=== PATIENT | male | born 1985 | race Caucasian/White ===

== ENCOUNTER 2017-09-18 15:56 | Emergency (ER) | payer BC, SELFPAY | END 2017-09-18 16:45 | disposition home or self-care (01) | PROVIDERS: Emergency Provider Nurse Practitioner Family; Family Provider Emergency Medicine; Visit Provider Nurse Practitioner Family | DX: J06.9 Acute upper respiratory infection, unspecified (principal) | CPT/HCPCS: 87804; 87880; 99201 ==

== ENCOUNTER 2017-10-10 18:06 | Emergency (ER) | payer BC, SELFPAY ==
[2017-10-10 18:39] VITALS: BP 132/83; PULSE 89; RESP 20; TEMP 37.9; O2SAT 98; BMI 39.8
[2017-10-10 18:46] LABS: UTC Influenza A Antigen Positive (Negative); UTC Influenza B Antigen Negative (Negative)
--- NOTE | 2017-10-10 19:52 | HMH.EDUTC ---
[facility] [place] Disposition Clinical Impression: Influenza A Disposition: Home, Self-Care Condition on Discharge: Good Instructions: DI for Influenza -- Adult Additional Instructions: * Start Tamiflu maame if you are going to take it. Discussed risks and possible benefits. * Lots of rest * Increase fluids, water, gatorade, powerade, pedialyte if /toddler/child * Monitor Temp. Tylenol every 4 hours as needed no more then 5 times a day or 4000mg in 24 hours and/or ibuprofen every 6 hours as needed no more then 3200mg in 24 hours (as long as your primary care doctor has told you that it is ok to take both) for fever/aches/pain. ER if fever no less than 101 despite tylenol and Ibuprofen * You (or your child) are contagious until no fever, aches, chills x 24 hours without medication for symptoms. Prescriptions: Oseltamivir Phosphate [Tamiflu 75mg Capsule] 75 mg PO BID #10 capsule Referrals: Erick Jimenez MD [Primary Care Provider] - (IMMEDIATELY for new or worsening symptoms, improvement followed by suddenly feeling worse OR no noticeable improvement over the next 48-72 hours. 911 for difficulty breathing ) Forms: Work/School Release Time of Disposition: 20:02 Medical Decision Making Vital Signs: 10/10/17 18:39 Temperature 100.2 F H Temperature Source Oral Pulse Rate [Left Brachial] 89 Respiratory Rate 20 Blood Pressure [Left Arm] 132/83 Blood Pressure Mean [Left Arm] 99 Blood Pressure Source [Left Arm] Automatic Cuff Blood Pressure Position [Left Arm] Sitting 02 Sat by Pulse Oximetry 98 Oxygen Delivery Method Room Air - Lab Data Lab results reviewed: Yes: I reviewed the patient's lab results. Lab Results 10/10/17 18:19: Influenza Type A Ag Positive A, Influenza Type B Ag Negative - Tra Inquiry Pt receiving controlled substance: No [facility] [place] HPI - General Stated complaint: fever,pain,chest congestion,cough Time Seen by Provider: 10/10/17 19:52 Mode of Arrival: Ambulatory Source of Information: Patient Limitations: No Limitations Description of Symptoms (Recalled from Triage Doc. by RN): c/o flu-like symptoms HEENT Symptoms (Recalled from RN notes): Yes (runny nose) Resp Symptoms (Recalled from RN notes): Yes (cough, congestion) Skin Symptoms (Recalled from RN notes): No MS Symptoms (Recalled from RN notes): Yes (bodyaches) Functional Status (Recalled from RN notes): n/a - History of Present Illness Provider Complaint: c/o fever, aches, chills, cough. Started last night w/ just not feeling well but then other symptoms started throughout today. Daughter had the flu less then 2 weeks ago. No treatment prior to arrival. - Related Data Previous Rx's Medication Instructions Recorded Oseltamivir Phosphate [Tamiflu 75 mg PO BID #10 cap 10/10/17 75mg Capsule] Allergies Allergy/AdvReac Type Severity Reaction Status Date / Time No Known Allergies Allergy Verified 10/10/17 18:44 NKDA Allergy Unknown Uncoded 09/15/17 14:43 - Worker's Comp Is this a Worker's Comp case?: No [facility] History I have reviewed the patient's past medical history: Yes (denies PMHx) Medical History: Denies:: Cancer, Diabetes Mellitus Type 1, Diabetes Mellitus Type 2, Hypertension, MRSA Other Surgeries: Yes: No Previous Surgery Amputation: No Fractures: No - *Social History Smoking Status: Never smoker Alcohol Intake: never - Psychiatric History Expresses thoughts of harming self/others: None Suicide Plan Description: No Plan ROS Obtained: Yes Systems reviewed as appropriate & no additional complaints - Constitutional Constitutional: Reports body ache, Reports chills, Reports fatigue, Reports poor appetite - Eyes Eyes: Denies eye discharge, Denies eye pain - ENT Ears, Nose, Mouth, and Throat: Denies difficulty swallowing, Denies ear discharge, Denies otalgia, Reports nasal congestion, Reports nasal discharge, Denies sinus pain, Reports sinus pressure, Reports sore throat, Denies throat swelling
--- NOTE | 2017-10-10 19:57 | ED_ITS ---
[place] Disposition Clinical Impression: Influenza A Disposition: Home, Self-Care Condition on Discharge: Good Instructions: DI for Influenza -- Adult Additional Instructions: * Start Tamiflu maame if you are going to take it. Discussed risks and possible benefits. * Lots of rest * Increase fluids, water, gatorade, powerade, pedialyte if infant/toddler/child * Monitor Temp. Tylenol every 4 hours as needed no more then 5 times a day or 4000mg in 24 hours and/or ibuprofen every 6 hours as needed no more then 3200mg in 24 hours (as long as your primary care doctor has told you that it is ok to take both) for fever/aches/pain. ER if fever no less than 101 despite tylenol and Ibuprofen * You (or your child) are contagious until no fever, aches, chills x 24 hours without medication for symptoms. Prescriptions: Oseltamivir Phosphate [Tamiflu 75mg Capsule] 75 mg PO BID #10 capsule Referrals: Erick Jimenez MD [Primary Care Provider] - (IMMEDIATELY for new or worsening symptoms, improvement followed by suddenly feeling worse OR no noticeable improvement over the next 48-72 hours. 911 for difficulty breathing * ) Forms: Work/School Release Time of Disposition: 20:02 Medical Decision Making Vital Signs: 10/10/17 18:39 Temperature 100.2 F H Temperature Source Oral Pulse Rate [Left Brachial] 89 Respiratory Rate 20 Blood Pressure [Left Arm] 132/83 Blood Pressure Mean [Left Arm] 99 Blood Pressure Source [Left Arm] Automatic Cuff Blood Pressure Position [Left Arm] Sitting 02 Sat by Pulse Oximetry 98 Oxygen Delivery Method Room Air - Lab Data Lab results reviewed: Yes: I reviewed the patient's lab results. Lab Results 10/10/17 18:19: Influenza Type A Ag Positive A, Influenza Type B Ag Negative - Tra Inquiry Pt receiving controlled substance: No [place] HPI - General Stated complaint: fever,pain,chest congestion,cough Time Seen by Provider: 10/10/17 19:52 Mode of Arrival: Ambulatory Source of Information: Patient Limitations: No Limitations Description of Symptoms (Recalled from Triage Doc. by RN): c/o flu-like symptoms HEENT Symptoms (Recalled from RN notes): Yes (runny nose) Resp Symptoms (Recalled from RN notes): Yes (cough, congestion) Skin Symptoms (Recalled from RN notes): No MS Symptoms (Recalled from RN notes): Yes (bodyaches) Functional Status (Recalled from RN notes): n/a - History of Present Illness Provider Complaint: c/o fever, aches, chills, cough. Started last night w/ just not feeling well but then other symptoms started throughout today. Daughter had the flu less then 2 weeks ago. No treatment prior to arrival. - Related Data Previous Rx's Medication Instructions Recorded Oseltamivir Phosphate [Tamiflu 75 mg PO BID #10 cap 10/10/17 75mg Capsule] Allergies Allergy/AdvReac Type Severity Reaction Status Date / Time No Known Allergies Allergy Verified 10/10/17 18:44 NKDA Allergy Unknown Uncoded 09/15/17 14:43 - Worker's Comp Is this a Worker's Comp case?: No [facility] History I have reviewed the patient's past medical history: Yes (denies PMHx) Medical History: Denies:: Cancer, Diabetes Mellitus Type 1, Diabetes Mellitus Type 2, Hypertension, MRSA Other Surgeries: Yes: No Previous Surgery Amputation: No Fractures: No - *Social History Smoking Status: Never smoker Alcohol Intake: never
[2017-10-10 20:08] VITALS: BP 132/83; PULSE 89; RESP 20; TEMP 37.7; O2SAT 98
== END 2017-10-10 20:10 | disposition home or self-care (01) ==
PROVIDERS: Emergency Provider Nurse Practitioner Family; Family Provider Emergency Medicine; PCP Emergency Medicine
DX: J10.1 Influenza due to other identified influenza virus with other respiratory manifestations (principal)
CPT/HCPCS: 87804; 99202

== ENCOUNTER → 2018-05-06 10:03 | Outpatient (REF) | payer BC, SELFPAY ==
[2018-05-06 14:03] LABS: Basophils # 0.1 K/mm3 (0-0.2); Eosinophils # 0.8 K/mm3 (0.0-0.4); Eosinophils % 11.2 % (0.1-12.0); Hematocrit 49.4 % (42.0-52.0); Hemoglobin 16.4 g/dL (14.1-18.0); Lymphocytes # 1.8 K/mm3 (0.7-4.5); Lymphocytes % 26.1 K/mm3 (10-50); Mean Corpuscular HGB Conc 33.2 g/dL (31.8-35.4); Mean Corpuscular Hemoglobin 30.5 pg (27.0-31.2); Mean Corpuscular Volume 91.8 fl (80-94); Mean Platelet Volume 9.3 fl (7.4-10.4); Monocytes # 0.3 K/mm3 (0.1-1.0); Monocytes % 4.7 % (1.7-9.3); Neutrophils # 3.8 K/mm3 (1.8-7.8); Neutrophils % 56.9 % (37.0-80.0); Platelet Count 163 K/mm3 (142-424); Red Blood Count 5.38 M/mm3 (4.60-6.20); White Blood Count 6.7 K/mm3 (4.8-10.8)
[2018-05-06 14:35] LABS: Alanine Aminotransferase 82 U/L (12-78); Albumin Level 4.1 gm/dL (3.4-5.0); Albumin/Globulin Ratio 1.5 (1.1-1.8); Alkaline Phosphatase 62 U/L (46-116); Anion Gap 11.7 mEq/L (5-15); Aspartate Amino Transferase 54 U/L (15-37); Bilirubin,Total 0.6 mg/dL (0.2-1.0); Blood Urea Nitrogen 13 mg/dL (7-18); Carbon Dioxide 28 mmol/L (21.0-32.0); Chloride 103 mmol/L (98-107); Chol/HDL Ratio 3.7 (1-3.5); Cholesterol 165 mg/dL (140-200); Creatinine,Serum 0.93 mg/dL (0.70-1.30); Estimated Glomerular Filt Rate 94 ml/min (>60); GFR (African American) 113 ML/MIN (>60); Globulin 2.8 gm/dl (1.3-3.2); Glucose 80 mg/dL (74-106); HDL Cholesterol 45 mg/dL (27-67); LDL Cholesterol 106 mg/dL (0-130); Potassium 3.7 mmoL/L (3.5-5.1); Sodium 139 mmol/L (136-145); Thyroid Stimulating Hormone 1.11 uIU/ml (0.358-3.740); Total Protein,Serum 6.9 gm/dL (6.4-8.2); Triglycerides 70 mg/dL (30-200); VLDL Cholesterol 14 mg/dL (0-40)
[2018-05-06 14:47] LABS: Hemoglobin A1C 5.4 % (0.0-7.0)
[2018-05-07 15:23] LABS: PSA, Free 0.13 ng/mL; Prostate Specific Ag 0.5 ng/mL (0.0-4.0); Vitamin D 25 Hydroxy 42.1 ng/mL (30.0-100.0)
== END ==
LOC: LAB 10:03
PROVIDERS: Visit Provider Nurse Practitioner Family
DX: T78.40XA Allergy, unspecified, initial encounter (principal); R53.83 Other fatigue; R11.2 Nausea with vomiting, unspecified
CPT/HCPCS: 80053; 80061; 82652; 83036; 84153; 84154; 84436; 84443; 85025

== ENCOUNTER → 2018-05-24 07:44 | Outpatient (CLI) | payer BC, SELFPAY ==
[2018-05-25 09:19] LABS: Hep A Ab, IgM Negative (Negative); Hepatitis B Core Antibody IgM Negative (Negative); Hepatitis B Surface Antigen Negative (Negative)
[2018-05-26 14:49] LABS: Hepatitis C Antibody 0.1 s/co ratio (0.0-0.9)
== END ==
PROVIDERS: PCP Emergency Medicine; Visit Provider Nurse Practitioner Family
DX: R74.8 Abnormal levels of other serum enzymes (principal)
CPT/HCPCS: 36415; 80074

== ENCOUNTER → 2019-05-19 12:46 | Outpatient (CLI) | payer BC, SELFPAY ==
[2019-05-19 13:11] LABS: Basophils # 0.1 K/mm3 (0-0.2); Eosinophils # 0.2 K/mm3 (0.0-0.4); Eosinophils % 3.6 % (0.1-12.0); Hematocrit 49.3 % (42.0-52.0); Hemoglobin 16.3 g/dL (14.1-18.0); Lymphocytes # 1.9 K/mm3 (0.7-4.5); Lymphocytes % 31.1 % (10-50); Mean Corpuscular HGB Conc 33.1 g/dL (31.8-35.4); Mean Corpuscular Hemoglobin 30.8 pg (27.0-31.2); Mean Corpuscular Volume 92.9 fl (80-94); Mean Platelet Volume 8.3 fl (7.4-10.4); Monocytes # 0.4 K/mm3 (0.1-1.0); Monocytes % 6.7 % (1.7-9.3); Neutrophils # 3.6 K/mm3 (1.8-7.8); Neutrophils % 57.6 % (37.0-80.0); Platelet Count 183 K/mm3 (142-424); Red Blood Count 5.31 M/mm3 (4.60-6.20); White Blood Count 6.2 K/mm3 (4.8-10.8)
[2019-05-19 15:03] LABS: Alanine Aminotransferase 67 U/L (12-78); Albumin/Globulin Ratio 1.4 (1.1-1.8); Alkaline Phosphatase 43 U/L (46-116); Anion Gap 9.9 mEq/L (5-15); Aspartate Amino Transferase 34 U/L (15-37); Bilirubin,Total 0.6 mg/dL (0.2-1.0); Blood Urea Nitrogen 16 mg/dL (7-18); Calcium 9.1 mg/dL (8.5-10.1); Carbon Dioxide 31 mmol/L (21.0-32.0); Chloride 104 mmol/L (98-107); Chol/HDL Ratio 4.3 (1-3.5); Cholesterol 187 mg/dL (140-200); Estimated Glomerular Filt Rate 86 ml/min (>60); GFR (African American) 103 ML/MIN (>60); Globulin 2.8 gm/dl (1.3-3.2); Glucose 93 mg/dL (74-106); HDL Cholesterol 44 mg/dL (27-67); LDL Cholesterol 120 mg/dL (0-130); Potassium 3.9 mmoL/L (3.5-5.1); Sodium 141 mmol/L (136-145); T4 (Thyroxine) 5.7 ug/dl (4.7-13.3); Thyroid Stimulating Hormone 2.26 uIU/ml (0.358-3.740); Total Protein,Serum 6.8 gm/dL (6.4-8.2); Triglycerides 117 mg/dL (30-200); VLDL Cholesterol 23 mg/dL (0-40)
[2019-05-20 09:51] LABS: Vitamin D 25 Hydroxy 24.9 ng/mL (30.0-100.0)
== END ==
PROVIDERS: Visit Provider Nurse Practitioner Family
DX: Z00.00 Encounter for general adult medical examination without abnormal findings (principal)
CPT/HCPCS: 36415; 80053; 80061; 82652; 84436; 84443; 85025

== ENCOUNTER 2021-05-07 12:34 | Emergency (ER) | payer BC, SELFPAY ==
[2021-05-07 13:10] VITALS: BP 149/81; PULSE 78; RESP 20; TEMP 36.8; O2SAT 97; BMI 41.7
[2021-05-07 13:33] LABS: UTC Strep Screen (Rapid) Positive (Negative)
[2021-05-07 13:34] VITALS: BP 149/81; PULSE 78; RESP 20; TEMP 36.8; O2SAT 97
[2021-05-07 13:38] LABS: Adenovirus,PCR Not Detected (NotDetected); Bordetella Pertussis Not Detected (NotDetected); Chlamydophila Pneumoniae, PCR Not Detected (NotDetected); Coronavirus 19, PCR Not Detected (NotDetected); Coronavirus 229E Not Detected (NotDetected); Coronavirus NL63 Not Detected (NotDetected); Coronavirus OC43 Not Detected (NotDetected); Coronovirus HKU1,PCR Not Detected (NotDetected); Human Metapneumovirus Not Detected (NotDetected); Influenza A, PCR Not Detected (NotDetected); Influenza AH1, 2009 Not Detected (NotDetected); Influenza AH1, PCR Not Detected (NotDetected); Influenza AH3,PCR Not Detected (NotDetected); Influenza B, PCR Not Detected (NotDetected); Mycoplasma Pneumoniae, PCR Not Detected (NotDetected); Parainfluenza 1, PCR Not Detected (NotDetected); Parainfluenza 2, PCR Not Detected (NotDetected); Parainfluenza 4, PCR Not Detected (NotDetected); Respiratory Syncytial Virus Not Detected (NotDetected); Rhinovirus/Enterovirus Not Detected (NotDetected)
--- NOTE | 2021-05-07 13:44 | HMH.EDUTC ---
[facility] [place] Clinical Impression: Strep throat Disposition: Home, Self-Care Condition on Discharge: Good Instructions: Strep Throat, DI for Strep Throat Additional Instructions: Drink plenty of fluids. Take tylenol or ibuprofen for pain or fever. Take the medications as directed. Follow up with your regular doctor. GO TO THE ER FOR ANY WORSENING SYMPTOMS Throw your tooth brush away and get a new one. Prescriptions: Brompheniramine/Pseudoephed/Dm [Bromfed Dm Cough Syrup] 5 ml PO Q6HP PRN #240 syrup PRN Reason: Cough [facility]: [facility] Ondansetron [Zofran 4mg ODT] 4 mg PO Q8HP PRN #12 tab.rapdis PRN Reason: Nausea Transmission Status: [facility] Amoxicillin [Amoxicillin 500mg Tab] 500 mg PO TID 10 Days #30 tab Transmission Status: [facility] Referrals: Erick Jimenez MD [Primary Care Provider] - Forms: Work/School Release Time of Disposition: 13:50 Medical Decision Making - Medical Records Medical records reviewed: No: I reviewed the patient's medical records. - Tra Inquiry Pt receiving controlled substance: No Vital Signs: 05/07/21 13:10 05/07/21 13:34 Temperature 98.3 F 98.3 F Temperature Source Oral Pulse Rate 78 Pulse Rate [Right Brachial] 78 Respiratory Rate 20 20 Blood Pressure 149/81 H Blood Pressure [Right Arm] 149/81 H Blood Pressure Mean [Right Arm] 103 Blood Pressure Source [Right Arm] Automatic Cuff Blood Pressure Position [Right Arm] Sitting 02 Sat by Pulse Oximetry 97 Oxygen Delivery Method Room Air - Lab Data Lab results reviewed: Yes: I reviewed the patient's lab results. Lab Results 05/07/21 13:15: Chlamy pneumoniae PCR Not detected, Adenovirus (PCR) Not detected, B. pertussis DNA (PCR) Not detected, Coronavirus OC43 (PCR) Not detected, Coronavirus HKU1 (PCR) Not detected, Coronavirus 229E (PCR) Not detected, SARS-CoV-2 (PCR) Not detected, Coronavirus NL63 (PCR) Not detected, Human Metapneumovir PCR Not detected, Influenza A (H1) PCR Not detected, Influ A (H1N1/09) PCR Not detected, Influenza A (H3) PCR Not detected, Influenza Type A (PCR) Not detected, Influenza Type B (PCR) Not detected, M. pneumoniae (PCR) Not detected, Parainfluenza 1 (PCR) Not detected, Parainfluenza 2 (PCR) Not detected, Parainfluenza 3 (PCR) Detected A, Parainfluenza 4 (PCR) Not detected, RSV (PCR) Not detected, Entero/Rhino (PCR) Not detected 05/07/21 13:30: Strep Scn Rapid Clinic Positive A [facility] [place]PI - General Stated complaint: covid Time Seen by Provider: 05/07/21 13:44 Mode of Arrival: Ambulatory Source of Information: Patient Limitations: No Limitations Description of Symptoms (Recalled from Triage Doc. by RN): PATIENT C/O FEVER, HEADACHE, STOMACH ACHE, NAUSEA, SORE THROAT, AND RUNNY NOSE SINCE YESTERDAY HEENT Symptoms (Recalled from RN notes): Yes Resp Symptoms (Recalled from RN notes): No Skin Symptoms (Recalled from RN notes): No MS Symptoms (Recalled from RN notes): No Functional Status (Recalled from RN notes): WNL - History of Present Illness Provider Complaint: He reports that he has had sore throat and feeling bad since yesterday. He states that his symptoms began like a ton of bricks landing on him. He denies any chest pain, but he has had a dry cough. He has had nausea, but no vomiting or diarrhea. - Related Data Previous Rx's Medication Instructions Recorded cholecalciferol (vitamin D3) 25 1,000 unit PO DAILY #90 cap 05/23/19 mcg (1,000 unit) capsule Amoxicillin [Amoxicillin 500mg Tab] 500 mg PO TID 10 Days #30 tab 05/07/21 Brompheniramine/Pseudoephed/Dm 5 ml PO Q6HP PRN #240 syrup 05/07/21 [Bromfed Dm Cough Syrup] Ondansetron [Zofran 4mg ODT] 4 mg PO Q8HP PRN #12 tab.rapdis 05/07/21 Allergies Allergy/AdvReac Type Severity Reaction Status Date / Time Egg Derived Allergy Unknown Verified 05/13/19 14:01 - Worker's Comp Is this a W
[2021-05-07 15:49] LABS: Parainfluenza 3, PCR Detected (NotDetected)
== END 2021-05-07 14:04 | disposition home or self-care (01) ==
PROVIDERS: Emergency Provider Nurse Practitioner Family; PCP Emergency Medicine
DX: J02.0 Streptococcal pharyngitis (principal)
CPT/HCPCS: 87581; 87633; 87798; 87880; 99203; G0463

== ENCOUNTER 2021-05-09 15:07 | Emergency (ER) | payer BC, SELFPAY ==
[2021-05-09 15:07] VITALS: BP 141/96; PULSE 84; RESP 17; TEMP 37; O2SAT 96; BMI 41.7
--- NOTE | 2021-05-09 15:41 | HMH.EDUTC ---
[facility] [place] Clinical Impression: Parainfluenza Disposition: Home, Self-Care Condition on Discharge: Good Instructions: DI for Viral Upper Respiratory Infection -- Adult Additional Instructions: Continue taking antibiotics for strep throat infection Continue taking Bromfed for cough *Monitor Temp, Over the counter Motrin or Tylenol as directed/as needed Tylenol every 4 hours and Motrin every 6 hours (as long as your family doctor has told you that you can take it) for fever or pain. and straight to ER if unable to lower temp less than 101.0 after medication given *Warm salt water gargles may help to soothe the throat *Throat Lozenges *Warm fluids like tea with honey may help to soothe the throat *Sleep elevated *Humidifier/Vaporizer *Bromfed may cause drowsiness. Know how it effects you (your child) before driving, caring for small child, or sending your child to school. Not other antihistamines/allergy medications while taking bromfed You tested positive for Parainfluenza and this is a virus and may last for a little while and cause symptoms like you are having, there is no treatment for viruses Follow up IMMEDIATELY for new or worsening symptoms or no Noticeable improvement over the next 48-72 hours. 911 for difficulty breathing or swallowing Referrals: Erick Jimenez MD [Primary Care Provider] - As needed Forms: Work/School Release Time of Disposition: 15:51 Medical Decision Making - Tra Inquiry Pt receiving controlled substance: No Tra was queried for this patient: No Vital Signs: 05/09/21 15:07 Temperature 98.6 F Temperature Source Oral Pulse Rate [Left Radial] 84 Respiratory Rate 17 Blood Pressure [Right Arm] 141/96 H Blood Pressure Mean [Right Arm] 111 Blood Pressure Source [Right Arm] Automatic Cuff Blood Pressure Position [Right Arm] Sitting 02 Sat by Pulse Oximetry 96 Oxygen Delivery Method Room Air - Lab Data Lab results reviewed: Yes: I reviewed the patient's lab results. Lab Results 05/09/21 15:36: Strep Scn Rapid Clinic Negative Orders (Tests/Meds): ORDERS Category Date Time Status Strep Screen Confirmation Stat Micro 05/09/21 15:36 Received [facility] [place] - General Stated complaint: possible strep Time Seen by Provider: 05/09/21 15:41 Mode of Arrival: Ambulatory Source of Information: Patient Limitations: No Limitations Description of Symptoms (Recalled from Triage Doc. by RN): sore throat since Thursday HEENT Symptoms (Recalled from RN notes): Yes Resp Symptoms (Recalled from RN notes): No Skin Symptoms (Recalled from RN notes): No MS Symptoms (Recalled from RN notes): No Functional Status (Recalled from RN notes): na - History of Present Illness Provider Complaint: Patient state that he was seen on Thursday and dx with strep throat and had URP States that he has been taking antibiotics and still feeling bad States that he wasnt sure if his strep was getting worse or not and has not got the results from his URP and wanted to see if they was back - Related Data Previous Rx's Medication Instructions Recorded cholecalciferol (vitamin D3) 25 1,000 unit PO DAILY #90 cap 05/23/19 mcg (1,000 unit) capsule Amoxicillin [Amoxicillin 500mg Tab] 500 mg PO TID 10 Days #30 tab 05/07/21 Brompheniramine/Pseudoephed/Dm 5 ml PO Q6HP PRN #240 syrup 05/07/21 [Bromfed Dm Cough Syrup] Ondansetron [Zofran 4mg ODT] 4 mg PO Q8HP PRN #12 tab.rapdis 05/07/21 Allergies Allergy/AdvReac Type Severity Reaction Status Date / Time Egg Derived Allergy Unknown Verified 05/13/19 14:01 - Worker's Comp Is this a Worker's Comp case?: No [facility] History - Hepatitis A Screen Drug use history?: No High risk sexual behaviors?: No History of sexually transmitted infection?: No Currently employed?: No Childcare worker?: No Do you have indoor plumbing?: Yes Do you have electricity?: Yes Attestation statement:: This patient has been screened for Hepatitis A risk factors.
[2021-05-09 15:45] LABS: UTC Strep Screen (Rapid) Negative (Negative)
[2021-05-09 15:59] VITALS: BP 141/96; PULSE 84; RESP 17; TEMP 37; O2SAT 96
== END 2021-05-09 16:00 | disposition home or self-care (01) ==
PROVIDERS: Emergency Provider Nurse Practitioner; PCP Emergency Medicine
DX: B34.8 Other viral infections of unspecified site (principal); J02.0 Streptococcal pharyngitis
CPT/HCPCS: 87880; 99202; G0463

== ENCOUNTER → 2021-08-26 20:00 | Outpatient (CLI) | payer BC, SELFPAY ==
--- NOTE | 2021-08-28 11:46 | PC.NURSE ---
notified pt of positive COVID results at this time
== END ==
PROVIDERS: Visit Provider Nurse Practitioner Family
DX: U07.1 COVID-19 (principal); J02.9 Acute pharyngitis, unspecified
CPT/HCPCS: C9803; U0003; U0005

== ENCOUNTER 2021-12-26 14:01 | Emergency (ER) | payer BC, SELFPAY ==
[2021-12-26 14:01] VITALS: BP 150/92; PULSE 89; RESP 18; TEMP 37; O2SAT 96; BMI 42.3
[2021-12-26 16:41] LABS: UTC Influenza A Antigen Negative (Negative)
[2021-12-26 16:42] LABS: UTC Influenza B Antigen Negative (Negative)
[2021-12-26 16:51] LABS: Strep Scrn Group A (Rapid) Negative (Negative)
--- NOTE | 2021-12-26 16:54 | HMH.EDUTC ---
[facility] [place] Clinical Impression: Bronchitis, Viral syndrome Sinusitis Qualifiers: Sinusitis location: unspecified location Chronicity: acute Recurrence: non-recurrent Qualified Code(s): J01.90 - Acute sinusitis, unspecified Disposition: Home, Self-Care Condition on Discharge: Good Instructions: DI for Sinusitis, DI for Acute Bronchitis Additional Instructions: Drink plenty of fluids. Take tylenol or ibuprofen for pain or fever. Take the medications as directed. Follow up with your regular doctor. GO TO THE ER FOR ANY WORSENING SYMPTOMS Prescriptions: Amoxicillin/Potassium Clav [Amox-Clav 875-125 mg Tablet] 1 tab PO BID #20 tab Transmission Status: Pending to [facility] Benzonatate [Benzonatate 100mg cap] 100 mg PO TIDP PRN #30 cap PRN Reason: Cough Transmission Status: Pending to [facility] methylPREDNISolone [Medrol] 4 mg PO DIRECTED 6 Days #21 packet Transmission Status: Pending to [facility] Referrals: Erick Jimenez MD [Primary Care Provider] - Time of Disposition: 17:22 Medical Decision Making - Medical Records Medical records reviewed: No: I reviewed the patient's medical records. - Tra Inquiry Pt receiving controlled substance: No Vital Signs: 12/26/21 14:01 Temperature 98.6 F Temperature Source Oral Pulse Rate [Right Radial] 89 Respiratory Rate 18 Blood Pressure [Right Arm] 150/92 H Blood Pressure Mean [Right Arm] 111 Blood Pressure Source [Right Arm] Automatic Cuff Blood Pressure Position [Right Arm] Sitting 02 Sat by Pulse Oximetry 96 Oxygen Delivery Method Room Air - Lab Data Lab results reviewed: Yes: I reviewed the patient's lab results. Lab Results 12/26/21 16:31: Influenza Type A Ag Negative, Influenza Type B Ag Negative 12/26/21 16:32: Group A Strep Rapid Negative Orders (Tests/Meds): ORDERS Category Date Time Status Strep Screen Confirmation Stat Micro 12/26/21 16:32 Received [facility] [place]PI - General Stated complaint: fever, sore throat, congestion, runny nose, aches Time Seen by Provider: 12/26/21 16:54 Mode of Arrival: Ambulatory Source of Information: Patient Limitations: No Limitations Description of Symptoms (Recalled from Triage Doc. by RN): Pt sore throat, fever, sinus congestion, and body aches. HEENT Symptoms (Recalled from RN notes): Yes Resp Symptoms (Recalled from RN notes): Yes Skin Symptoms (Recalled from RN notes): No MS Symptoms (Recalled from RN notes): No Functional Status (Recalled from RN notes): n/a - History of Present Illness Provider Complaint: He states that he has has been feeling bad for the past 2 days. He has sinus congestion, sore throat, bilateral ear pain, and a productive cough with yellowish sputum. He denies any fever but he has been chilling. - Related Data Previous Rx's Medication Instructions Recorded cholecalciferol (vitamin D3) 25 1,000 unit PO DAILY #90 cap 05/23/19 mcg (1,000 unit) capsule Amoxicillin/Potassium Clav 1 tab PO BID #20 tab 12/26/21 [Amox-Clav 875-125 mg Tablet] Benzonatate [Benzonatate 100mg 100 mg PO TIDP PRN #30 cap 12/26/21 cap] methylPREDNISolone [Medrol] 4 mg PO DIRECTED 6 Days #21 12/26/21 packet Allergies Allergy/AdvReac Type Severity Reaction Status Date / Time Egg Derived Allergy Unknown Verified 12/26/21 16:31 - Worker's Comp Is this a Worker's Comp case?: No [facility] History - Hepatitis A Screen Drug use history?: No High risk sexual behaviors?: No History of sexually transmitted infection?: No Currently employed?: No Childcare worker?: No Do you have indoor plumbing?: Yes Do you have electricity?: Yes Attestation statement:: This patient has been screened for Hepatitis A risk factors. I have reviewed the patient's past medical history: Yes Medical History: Denies:: Cancer, Diabetes Mellitus Type 1, Diabetes Mellitus Type 2, Hypertension, MRSA Other Surgeries: Yes: No Previou
[2021-12-26 17:26] VITALS: BP 150/92; PULSE 89; RESP 18; TEMP 37; O2SAT 96
== END 2021-12-26 17:26 | disposition home or self-care (01) ==
PROVIDERS: Emergency Provider Nurse Practitioner Family; PCP Emergency Medicine
DX: J20.9 Acute bronchitis, unspecified (principal); J01.90 Acute sinusitis, unspecified; B34.9 Viral infection, unspecified
CPT/HCPCS: 87430; 87804; 99212; G0463

== ENCOUNTER 2022-07-10 14:43 | Emergency (ER) | payer BC, SELFPAY ==
[2022-07-10 15:00] VITALS: BP 130/85; PULSE 71; RESP 20; TEMP 36.7; O2SAT 94; BMI 41.7
--- NOTE | 2022-07-10 15:25 | EXP.UTC ---
Discharge Plan Disposition Patient Disposition: Home, Self-Care Condition: Good Prescriptions Prescriptions: New azithromycin [Zithromax] 250 mg tablet 250 mg PO UD DOSE PK Qty: 6 0RF Rx Instructions: Take two (2) tablets today, then one (1) tablet days #2 thru #5 benzonatate [benzonatate] 100 mg capsule 100 mg PO TIDP PRN (Reason: Cough) Qty: 30 0RF methylprednisolone 4 mg Tablets,Dose Pack 4 mg PO DIRECTED Qty: 21 0RF Referrals Follow up/Referrals: Erick Jimenez MD [Primary Care Provider] - See instructions Activity Restrictions/Add. Instructions Additional Instructions/Restrictions: Drink plenty of fluids. Take tylenol or ibuprofen for pain or fever. Take the medications as directed. Follow up with your regular doctor. GO TO THE ER FOR ANY WORSENING SYMPTOMS Quarantine until you know the results of your covid-19 test. Notify your school or workplace of your results and follow their instructions regarding return to work/school. Clinical Impressions Clinical Impression: Sinusitis, Acute bronchitis Stand Alone Forms Stand Alone Forms: Work/School Release Instructions Patient Instructions: Sinusitis, DI for Sinusitis, DI for Acute Bronchitis Discharge ED Provider: Galileo Ortiz [facility] [place] HPI General Stated complaint: sore throat,cough,SOA Mode of Arrival: Ambulatory Source of Information: Patient Limitations: No Limitations Time Seen by Provider: 07/10/22 15:25 Description of Symptoms (Recalled from Triage Doc. by RN): PATIENT C/O HEADACHE, SORE THROAT, RUNNY NOSE, CHILLS, BODY ACHES, AND CHEST CONGESTION THAT STARTED THURSDAY HEENT Symptoms (Recalled from RN notes): Yes Resp Symptoms (Recalled from RN notes): Yes Skin Symptoms (Recalled from RN notes): No MS Symptoms (Recalled from RN notes): No Functional Status (Recalled from RN notes): WNL History of Present Illness Provider Complaint: He states that for the past 3 days he has had chest congestion and sinus congestion. Related Data Previous Rx's Medication Instructions Recorded azithromycin 250 mg tablet 250 mg PO UD DOSE PK #6 tabs 07/10/22 (Zithromax) benzonatate 100 mg capsule 100 mg PO TIDP PRN Cough #30 caps 07/10/22 methylprednisolone 4 mg tablets in 4 mg PO DIRECTED #21 tabs 07/10/22 a dose pack Allergies Allergy/AdvReac Type Severity Reaction Status Date / Time Egg Derived Allergy Unknown Verified 12/26/21 16:31 Worker's Comp Is this a Worker's Comp case?: No PFSH PFSH Medical History No significant past medical history Social History Smoking Status: Never smoker alcohol intake: never substance use type: denies use current occupational status: other Travel in the last 8 weeks: None household members: family housing: house ROS Obtained: Yes All systems reviewed & no additional complaints except as documented Constitutional Constitutional: Reports chills and Reports fever(s) Eyes Eyes: Denies eye discharge ENT Ears, Nose, Mouth, and Throat: Reports as per HPI Cardiovascular Cardiovascular: Denies chest pain Respiratory Respiratory: Denies chest congestion and Reports cough Gastrointestinal Gastrointestingal: Reports nausea; Denies abdominal pain, constipation, cramping, diarrhea or vomiting Musculoskeletal Musculoskeletal: Denies arthralgias Integumentary/Breasts Skin/Breast: Denies rash Neurologic Neurologic: Denies paresthesias Physical Exam General General appearance: alert and in no apparent distress Head Head exam: atraumatic, normocephalic and normal inspection Eye Eye exam: Present normal appearance, PERRL and EOMI ENT ENT exam: Present mucous membranes moist and normal external ear exam Expanded ENT Exam TM/Canal exam: Bilateral TM: erythema and bulging Nose exam: Absent sinus tenderness Mouth exam: Present normal external inspection; A
[2022-07-10 16:15] VITALS: BP 130/85; PULSE 71; RESP 20; TEMP 36.7; O2SAT 94
== END 2022-07-10 16:17 | disposition home or self-care (01) ==
PROVIDERS: Emergency Provider Nurse Practitioner Family; PCP Emergency Medicine
DX: J20.9 Acute bronchitis, unspecified (principal); J32.9 Chronic sinusitis, unspecified
CPT/HCPCS: 99212; C9803; G0463; U0003; U0005

== ENCOUNTER 2022-09-08 14:39 | Emergency (ER) | payer BC, SELFPAY ==
[2022-09-08 16:31] VITALS: BP 144/85; PULSE 89; RESP 17; TEMP 37.9; O2SAT 96; BMI 39.8
--- NOTE | 2022-09-08 16:36 | EXP.UTC ---
Discharge Plan Disposition Patient Disposition: Home, Self-Care Condition: Good Prescriptions Prescriptions: New azithromycin [Zithromax] 250 mg tablet 250 mg PO UD DOSE PK Qty: 6 0RF Rx Instructions: Take two (2) tablets today, then one (1) tablet days #2 thru #5 benzonatate [benzonatate] 100 mg capsule 100 mg PO TIDP PRN (Reason: Cough) Qty: 30 0RF oseltamivir [Tamiflu] 75 mg capsule 75 mg PO BID Qty: 10 0RF No Action azithromycin [Zithromax] 250 mg tablet 250 mg PO UD DOSE PK Qty: 6 0RF Rx Instructions: Take two (2) tablets today, then one (1) tablet days #2 thru #5 benzonatate [benzonatate] 100 mg capsule 100 mg PO TIDP PRN (Reason: Cough) Qty: 30 0RF methylprednisolone 4 mg Tablets,Dose Pack 4 mg PO DIRECTED Qty: 21 0RF Referrals Follow up/Referrals: Erick Jimenez MD [Primary Care Provider] - See instructions Activity Restrictions/Add. Instructions Additional Instructions/Restrictions: Drink plenty of fluids. Take tylenol or ibuprofen for pain or fever. Take the medications as directed. Follow up with your regular doctor. GO TO THE ER FOR ANY WORSENING SYMPTOMS Clinical Impressions Clinical Impression: Acute bronchitis, Viral syndrome Stand Alone Forms Stand Alone Forms: Work/School Release Instructions Patient Instructions: DI for Influenza -- Adult, DI for Viral Syndrome, DI for Acute Bronchitis Discharge ED Provider: Galileo Ortiz [facility] General Stated complaint: cough, body aches, chills Mode of Arrival: Ambulatory Source of Information: Patient Limitations: No Limitations Time Seen by Provider: 09/08/22 16:36 Description of Symptoms (Recalled from Triage Doc. by RN): pt comes in with c/o cough, chest congestion, body aches, fever, nausea. symptoms began thursday HEENT Symptoms (Recalled from RN notes): Yes Resp Symptoms (Recalled from RN notes): Yes Skin Symptoms (Recalled from RN notes): No MS Symptoms (Recalled from RN notes): No Functional Status (Recalled from RN notes): n/a History of Present Illness Provider Complaint: He states that he is here today with cough, chest congestion, body aches, fever, nausea. His symptoms began on Thursday Related Data Previous Rx's Medication Instructions Recorded azithromycin 250 mg tablet 250 mg PO UD DOSE PK #6 tabs 07/10/22 (Zithromax) benzonatate 100 mg capsule 100 mg PO TIDP PRN Cough #30 caps 07/10/22 methylprednisolone 4 mg tablets in 4 mg PO DIRECTED #21 tabs 07/10/22 a dose pack azithromycin 250 mg tablet 250 mg PO UD DOSE PK #6 tabs 09/08/22 (Zithromax) benzonatate 100 mg capsule 100 mg PO TIDP PRN Cough #30 caps 09/08/22 oseltamivir 75 mg capsule (Tamiflu) 75 mg PO BID #10 caps 09/08/22 Allergies Allergy/AdvReac Type Severity Reaction Status Date / Time Egg Derived Allergy Unknown Verified 09/08/22 16:34 Worker's Comp Is this a Worker's Comp case?: No [facility] Disclaimer: The information contained in this section may have been updated after the patient was seen, as this information can be updated by other users. Medical History No significant past medical history Social History Smoking Status: Never smoker alcohol intake: never substance use type: denies use current occupational status: other Travel in the last 8 weeks: None household members: family housing: house ROS Obtained: Yes All systems reviewed & no additional complaints except as documented Constitutional Constitutional: Reports chills and Reports fever(s) Eyes Eyes: Denies eye discharge ENT Ears, Nose, Mouth, and Throat: Reports as per HPI Cardiovascular Cardiovascular: Denies chest pain Respiratory Respiratory: Denies chest congestion and Reports cough Gastrointestinal Gastrointestingal: Reports nausea; Denies abdominal pain, constipation, cramping, diarrhea o
[2022-09-08 16:53] LABS: UTC Strep Screen (Rapid) Negative (Negative)
[2022-09-08 17:21] VITALS: BP 144/85; PULSE 89; RESP 17; TEMP 37.6
[2022-09-08 18:19] LABS: Coronavirus 19, PCR Not Detected (NotDetected); Influenza B, PCR Not Detected (NotDetected)
[2022-09-08 21:08] LABS: Influenza A, PCR Detected (NotDetected)
== END 2022-09-08 17:22 | disposition home or self-care (01) ==
PROVIDERS: Emergency Provider Nurse Practitioner Family; PCP Emergency Medicine
DX: J10.1 Influenza due to other identified influenza virus with other respiratory manifestations (principal); J40 Bronchitis, not specified as acute or chronic
CPT/HCPCS: 87880; 99212; C9803; G0463; U0003; U0005

== ENCOUNTER 2022-11-25 10:08 | Emergency (ER) | payer BC, SELFPAY ==
[2022-11-25 10:30] VITALS: BP 132/96; PULSE 88; RESP 20; TEMP 37.6; O2SAT 97; BMI 39.5
--- NOTE | 2022-11-25 10:34 | EXP.UTC ---
Discharge Plan Disposition Patient Disposition: Home, Self-Care Condition: Good Referrals Follow up/Referrals: Erick Jimenez MD [Primary Care Provider] - See instructions Activity Restrictions/Add. Instructions Additional Instructions/Restrictions: *Monitor Temp, Over the counter Motrin or Tylenol as directed/as needed Tylenol every 4 hours and Motrin every 6 hours (as long as your family doctor has told you that you can take it) for fever or pain. and straight to ER if unable to lower temp less than 101.0 after medication given *Warm salt water gargles may help to soothe the throat *Throat Lozenges? *Warm fluids like tea with honey may help to soothe the throat? *Sleep elevated *Humidifier/Vaporizer Your throat swab was sent for culture. Those results are typically sent to your primary care. Be sure to follow up in 2-3 days with your family doctor/primary care physician if no improvement so they can review those result and treat if necessary. If you don?t have a primary care doctor, I recommend you get one but in the mean time, you will have to return to a walk in clinic Follow up IMMEDIATELY for new or worsening symptoms or no Noticeable improvement over the next 48-72 hours. 911 for difficulty breathing or swallowing You were tested for today for Upper Respiratory Panel with COVID19 your test result should be back in the next 24-48 hours, you may check your results on the [facility] [email or web address] [facility] Clinical Impressions Clinical Impression: Viral syndrome Stand Alone Forms Stand Alone Forms: Work/School Release Instructions Patient Instructions: DI for COVID-19 (Suspected or Confirmed ), Preventing the Spread of Coronavirus Discharge Instructions, DI for Fever (Symptom) -- Adult Discharge ED Provider: Farhana Ma [facility] HPI General Stated complaint: Congestion sore throat headache fever bodyaches Time Seen by Provider: 11/25/22 10:34 History of Present Illness Provider Complaint: Patient states that he has been having nasal congestion sore throat, fever and headaches States that he took a home COVID test and it was positive States that he was concerned he may have strep throat on top of it and needed to get a COVID test here Related Data Allergies Allergy/AdvReac Type Severity Reaction Status Date / Time Egg Derived Allergy Unknown Verified 09/08/22 16:[address] [facility] Disclaimer: The information contained in this section may have been updated after the patient was seen, as this information can be updated by other users. Medical History No significant past medical history Social History Smoking Status: Never smoker alcohol intake: never substance use type: denies use current occupational status: other Travel in the last 8 weeks: None household members: family housing: house ROS Obtained: Yes All systems reviewed & no additional complaints except as documented and Yes Systems reviewed as appropriate & no additional complaints except as documented Constitutional Constitutional: Reports system reviewed and no additional complaints, except as documented, Reports as per HPI, Reports body ache, Reports chills, Reports fever(s) and Reports headache(s) ENT Ears, Nose, Mouth, and Throat: Reports system reviewed and no additional complaints, except as documented, Reports as per HPI, Reports headache(s) and Reports sore throat Cardiovascular Cardiovascular: Reports system reviewed and no additional complaints, except as documented and Reports as per HPI Respiratory Respiratory: Reports system reviewed and no additional complaints, except as documented and Reports as per HPI Neurologic Neurologic: Reports headache(s) Physical Exam General General appearance: alert and in no apparent distress Expanded ENT Exam Nose exam: Absent sinus tenderness Throat exam: Present other (pharyn
[2022-11-25 10:57] LABS: UTC Strep Screen (Rapid) Negative (Negative)
[2022-11-25 10:58] VITALS: BP 132/96; PULSE 88; RESP 20; TEMP 37.6; O2SAT 97
== END 2022-11-25 11:07 | disposition home or self-care (01) ==
PROVIDERS: Emergency Provider Nurse Practitioner; PCP Emergency Medicine
DX: U07.1 COVID-19 (principal); R09.89 Other specified symptoms and signs involving the circulatory and respiratory systems; J02.9 Acute pharyngitis, unspecified; R51.9 Headache, unspecified; R52 Pain, unspecified; R50.9 Fever, unspecified
CPT/HCPCS: 87880; 99212; C9803; G0463; U0003; U0005

== ENCOUNTER 2023-02-10 14:28 | Emergency (ER) | payer BC, SELFPAY ==
[2023-02-10 14:42] VITALS: BP 147/98; PULSE 87; RESP 18; TEMP 36.8; O2SAT 95; BMI 38.5
--- NOTE | 2023-02-10 14:55 | EXP.UTC ---
Discharge Plan Disposition Patient Disposition: Home, Self-Care Condition: Good Prescriptions Prescriptions: New prednisone 10 mg tablet 10 mg PO BID 3 Days Qty: 6 0RF amoxicillin [amoxicillin] 875 mg tablet 875 mg PO Q12H Qty: 20 0RF [id number] [Bromfed DM] 2-30-10 mg/5 mL Syrup 5 ml PO Q6H PRN (Reason: Cough) Qty: 240 0RF Referrals Follow up/Referrals: Erick Jimenez MD [Primary Care Provider] - See instructions Activity Restrictions/Add. Instructions Additional Instructions/Restrictions: Drink plenty of fluids. Take tylenol or ibuprofen for pain or fever. Take the medications as directed. Follow up with your regular doctor. GO TO THE ER FOR ANY WORSENING SYMPTOMS Throw your tooth brush away and get a new one. Clinical Impressions Clinical Impression: Strep throat Stand Alone Forms Stand Alone Forms: Work/School Release Instructions Patient Instructions: DI for Strep Throat, Strep Throat Discharge ED Provider: Galileo Ortiz [facility] General Stated complaint: Sore throat sinus pressure headache Mode of Arrival: Ambulatory Source of Information: Patient Limitations: No Limitations Time Seen by Provider: 02/10/23 14:53 HEENT Symptoms (Recalled from RN notes): Yes Resp Symptoms (Recalled from RN notes): No Skin Symptoms (Recalled from RN notes): No MS Symptoms (Recalled from RN notes): No Functional Status (Recalled from RN notes): wnl History of Present Illness Provider Complaint: He states that for the past 3 days he has had worsening sore throat, chills, and malaise. Related Data Previous Rx's Medication Instructions Recorded amoxicillin 875 mg tablet 875 mg PO Q12H #20 tabs 02/10/23 [id number]-[id number]-[id number] 5 ml PO Q6H PRN Cough #240 mL 02/10/23 2 mg-30 mg-10 mg/5 mL oral syrup (Bromfed DM) prednisone 10 mg tablet 10 mg PO BID 3 days #6 tabs 02/10/23 Allergies Allergy/AdvReac Type Severity Reaction Status Date / Time Egg Derived Allergy Unknown Verified 09/08/22 16:34 Worker's Comp Is this a Worker's Comp case?: No [facility] Disclaimer: The information contained in this section may have been updated after the patient was seen, as this information can be updated by other users. Medical History No significant past medical history Social History Smoking Status: Never smoker alcohol intake: never substance use type: denies use current occupational status: other Travel in the last 8 weeks: None household members: family housing: house ROS Obtained: Yes All systems reviewed & no additional complaints except as documented Constitutional Constitutional: Reports chills and Reports fever(s) Eyes Eyes: Denies eye discharge ENT Ears, Nose, Mouth, and Throat: Reports as per HPI Cardiovascular Cardiovascular: Denies chest pain Respiratory Respiratory: Denies chest congestion and Reports cough Gastrointestinal Gastrointestingal: Reports nausea; Denies abdominal pain, constipation, cramping, diarrhea or vomiting Musculoskeletal Musculoskeletal: Denies arthralgias Integumentary/Breasts Skin/Breast: Denies rash Neurologic Neurologic: Denies paresthesias Physical Exam General General appearance: alert and in no apparent distress Head Head exam: atraumatic, normocephalic and normal inspection Eye Eye exam: Present normal appearance, PERRL and EOMI ENT ENT exam: Present mucous membranes moist and normal external ear exam Expanded ENT Exam TM/Canal exam: Bilateral TM: erythema and bulging Nose exam: Absent sinus tenderness Mouth exam: Present normal external inspection; Absent drooling Teeth exam: Present normal inspection Throat exam: Present tonsillar erythema, tonsillomegaly and tonsillar exudate Neck Neck exam: Present normal inspection, full ROM and trachea midline; Absent tenderness, meningismus
[2023-02-10 14:57] LABS: UTC Strep Screen (Rapid) Positive (Negative)
[2023-02-10 15:09] VITALS: BP 147/98; PULSE 87; RESP 18; TEMP 36.8
== END 2023-02-10 15:11 | disposition home or self-care (01) ==
PROVIDERS: Emergency Provider Nurse Practitioner Family; PCP Emergency Medicine
DX: J02.0 Streptococcal pharyngitis (principal); R53.81 Other malaise
CPT/HCPCS: 87880; 99212; 99214; G0463

== ENCOUNTER 2023-06-19 13:39 | Emergency (ER) | payer BC, SELFPAY ==
[2023-06-19 14:05] VITALS: BP 160/82; PULSE 76; RESP 20; TEMP 37.4; O2SAT 96; BMI 39.5
[2023-06-19 14:20] LABS: UTC Strep Screen (Rapid) Negative (Negative)
--- NOTE | 2023-06-19 14:23 | EXP.UTC ---
Discharge Plan Disposition Patient Disposition: Home, Self-Care Condition: Good Prescriptions Prescriptions: New amoxicillin-pot clavulanate 875-125 mg Tablet 1 tab PO Q12H Qty: 20 0RF prednisone 20 mg tablet 20 mg PO BID Qty: 10 0RF Referrals Follow up/Referrals: Erick Jimenez MD [Primary Care Provider] - See instructions Clinical Impressions Clinical Impression: Sinusitis Stand Alone Forms Stand Alone Forms: Work/School Release Instructions Patient Instructions: DI for Sinusitis Discharge ED Provider: Nicky Laura [facility] [place] HPI General Stated complaint: sore throat, congestion, body aches Mode of Arrival: Ambulatory Source of Information: Patient Limitations: No Limitations Time Seen by Provider: 06/19/23 14:23 Description of Symptoms (Recalled from Triage Doc. by RN): PATIENT C/O SORE THROAT, FEVER, CONGESTION, HEADACHE, AND BODY ACHES THAT STARTED 2 DAYS AGO HEENT Symptoms (Recalled from RN notes): Yes Resp Symptoms (Recalled from RN notes): No Skin Symptoms (Recalled from RN notes): No MS Symptoms (Recalled from RN notes): No Functional Status (Recalled from RN notes): WNL History of Present Illness Provider Complaint: Sore throat, headache, sinus pain and pressure, fever, body aches and chills X 2 days. No vomiting or diarrhea. Onset (ago): day(s) (2) Relieving factors: none Exacerbating factors: none Associated symptoms: denies other symptoms Treatments prior to arrival: none Related Data Previous Rx's Medication Instructions Recorded amoxicillin 875 mg-potassium 1 tab PO Q12H #20 tabs 06/19/23 clavulanate 125 mg tablet prednisone 20 mg tablet 20 mg PO BID #10 tabs 06/19/23 Allergies Allergy/AdvReac Type Severity Reaction Status Date / Time Egg Derived Allergy Unknown Verified 09/08/22 16:34 Worker's Comp Is this a Worker's Comp case?: No [facility] Disclaimer: The information contained in this section may have been updated after the patient was seen, as this information can be updated by other users. Medical History No significant past medical history Social History Smoking Status: Never smoker alcohol intake: never substance use type: denies use current occupational status: other Travel in the last 8 weeks: None household members: family housing: house ROS Obtained: Yes All systems reviewed & no additional complaints except as documented Constitutional Constitutional: Reports body ache, Reports fatigue, Reports fever(s), Reports headache(s) and Reports malaise ENT Ears, Nose, Mouth, and Throat: Reports headache(s), Reports nasal congestion, Reports sinus pain and Reports sore throat Neurologic Neurologic: Reports headache(s) Endocrine Endocrine: Reports fatigue Physical Exam General General appearance: alert and in no apparent distress Head Head exam: atraumatic, normocephalic and normal inspection Eye Eye exam: Present normal appearance, PERRL and EOMI ENT ENT exam: Present normal exam, normal oropharynx, mucous membranes moist, TM's normal bilaterally and normal external ear exam Expanded ENT Exam Nose exam: Present sinus tenderness Neck Neck exam: Present normal inspection, full ROM and trachea midline; Absent meningismus or lymphadenopathy Chest Chest inspection: Present normal inspection and symmetric chest wall rise; Absent tenderness Respiratory Respiratory exam: Present normal lung sounds bilaterally; Absent respiratory distress Cardiovascular Cardiovascular exam: Present regular rate and normal rhythm; Absent JVD Abdominal Exam Abdominal exam: Present soft and normal bowel sounds; Absent distention, tenderness or guarding Extremities Exam Extremities exam: Present normal inspection, full ROM and normal capillary refill; Absent calf tenderness Back Exam Back exam: Present normal inspection; Absent tenderness Neurologica
[2023-06-19 14:36] VITALS: BP 160/82; PULSE 76; RESP 20; TEMP 37.4; O2SAT 96
== END 2023-06-19 14:41 | disposition home or self-care (01) ==
PROVIDERS: Emergency Provider Physician Assistant; PCP Emergency Medicine
DX: J01.90 Acute sinusitis, unspecified (principal)
CPT/HCPCS: 87880; 99212; 99214; G0463

== ENCOUNTER 2023-09-25 13:33 | Emergency (ER) | payer BC, SELFPAY ==
[2023-09-25 14:30] VITALS: BP 153/93; PULSE 79; RESP 20; TEMP 36.9; O2SAT 96; BMI 41.0
--- NOTE | 2023-09-25 14:41 | ED_ITS ---
Discharge Plan Disposition Patient Disposition: Home, Self-Care Condition: Good Prescriptions Prescriptions: New benzonatate [benzonatate] 100 mg capsule 100 mg PO TIDP PRN (Reason: Cough) Qty: 30 0RF methylprednisolone 4 mg Tablets,Dose Pack 4 mg PO DIRECTED 6 Days Qty: 21 0RF Rx Instructions: Take 1 pack as directed for 6 days amoxicillin-pot clavulanate 875-125 mg Tablet 1 tab PO Q12H Qty: 20 0RF guaifenesin [Mucinex] 600 mg tablet extended release 12hr 600 - 1,200 mg PO BIDP PRN (Reason: Congestion) Qty: 30 0RF Referrals Follow up/Referrals: Gonzalez Barbosa DO [Primary Care Provider] - See instructions Activity Restrictions/Add. Instructions Additional Instructions/Restrictions: Drink plenty of fluids. Take tylenol or ibuprofen for pain or fever. Take the medications as directed. Follow up with your regular doctor. GO TO THE ER FOR ANY WORSENING SYMPTOMS Clinical Impressions Clinical Impression: Acute bronchitis Instructions Patient Instructions: Acute Bronchitis, DI for Acute Bronchitis Discharge ED Provider: Galileo Ortiz [facility] General Stated complaint: cough, congestion, CRUZ and sore throat Mode of Arrival: Ambulatory Source of Information: Patient Limitations: No Limitations Time Seen by Provider: 09/25/23 14:41 Description of Symptoms (Recalled from Triage Doc. by RN): PATIENT C/O FEVER, COUGH, CHEST CONGESTION, HEADACHE AND BODY ACHES SINCE THURSDAY HEENT Symptoms (Recalled from RN notes): Yes Resp Symptoms (Recalled from RN notes): Yes Skin Symptoms (Recalled from RN notes): No MS Symptoms (Recalled from RN notes): No Functional Status (Recalled from RN notes): WNL History of Present Illness Provider Complaint: He states that he has had chest congestion and sinus congestion for the past 5 days. Related Data Previous Rx's Medication Instructions Recorded amoxicillin 875 mg-potassium 1 tab PO Q12H #20 tabs 09/25/23 clavulanate 125 mg tablet benzonatate 100 mg capsule 100 mg PO TIDP PRN Cough #30 caps 09/25/23 guaifenesin 600 mg tablet, 600 - 1,200 mg PO BIDP PRN 09/25/23 extended release 12 hr (Mucinex) Congestion #30 tabs methylprednisolone 4 mg tablets in 4 mg PO DIRECTED 6 days #21 tabs 09/25/23 a dose pack Allergies Allergy/AdvReac Type Severity Reaction Status Date / Time Egg Derived Allergy Unknown Verified 09/08/22 16:34 Worker's Comp Is this a Worker's Comp case?: No [facility] Disclaimer: The information contained in this section may have been updated after the patient was seen, as this information can be updated by other users. Medical History No significant past medical history Social History Smoking Status: Never smoker alcohol intake: never substance use type: denies use current occupational status: other Travel in the last 8 weeks: None household members: family housing: house ROS Obtained: Yes All systems reviewed & no additional complaints except as documented Constitutional Constitutional: Reports poor appetite Eyes Eyes: Reports system reviewed and no additional complaints, except as documented ENT Ears, Nose, Mouth, and Throat: Reports as per HPI Cardiovascular Cardiovascular: Reports system reviewed and no additional complaints, except as documented and Denies chest pain Respiratory Respiratory: Denies shortness of breath, Reports chest congestion, Reports cough, Denies stridor and Denies wheezing Gastrointestinal Gastrointestingal: Reports system reviewed and no additional complaints, except as documented; Denies abdominal pain, diarrhea or vomiting Musculoskeletal Musculoskeletal: Reports system reviewed and no additional complaints, except as documented and Denies arthralgias Integumentary/Breasts Skin/Breast: Reports system reviewed and no additional complaints, except as documented and Denies rash Neurologic Neurologic: Denies paresthesias Allergic/Immunologic Allergic/Immunologic: Denies wheezing Physical Exam General General appearance: alert and in no apparent distress Eye Eye exam: Present normal appearance, PERRL and EOMI ENT ENT exam: Present mucous membranes moist and normal external ear exam Expanded ENT Exam External ear exam: Present normal external inspection TM/Canal exam: Bilateral TM: erythema and bulging Nose exam: Absent sinus tenderness Nasal speculum exam: Bilateral: normal Mouth exam: Present normal external inspection; Absent drooling Teeth exam: Present normal inspection Throat exam: Present tonsillar erythema and tonsillomegaly Neck Neck exam: Present normal inspection, full ROM and trachea midline; Absent tenderness, lymphadenopathy or thyromegaly Chest Chest inspection: Present normal inspection and symmetric chest wall rise; Absent tenderness or rash Respiratory Respiratory exam: Present normal lung sounds bilaterally; Absent respiratory distress, wheezes, stridor or accessory muscle use Cardiovascular Cardiovascular exam: Present regular rate, normal rhythm and normal heart sounds Abdominal Exam Abdominal exam: Present soft; Absent distention, tenderness, guarding, rebound or rigidity Extremities Exam Extremities exam: Present normal inspection, full ROM and normal capillary refill; Absent tenderness or calf tenderness Back Exam Back exam: Present normal inspection and full ROM; Absent tenderness Neurological Exam Neurological exam: Present alert and oriented X3 Psychiatric Psychiatric exam: Present normal affect and normal mood Skin Skin exam: Present warm, dry, intact and normal color Lymphatic Lymphatic Findings: no adenopathy Medical Decision Making Medical Records Medical records reviewed: No I reviewed the patient's medical records. Tra Inquiry Pt receiving controlled substance: No Vital Signs: 09/25/23 14:30 Temperature 98.4 F Temperature Source Oral Pulse Rate [Right Brachial] 79 Respiratory Rate 20 Blood Pressure [Right Arm] 153/93 H Blood Pressure Mean [Right Arm] 113 Blood Pressure Source [Right Arm] Automatic Cuff Blood Pressure Position [Right Arm] Sitting 02 Sat by Pulse Oximetry 96 Oxygen Delivery Method Room Air
[2023-09-25 14:51] LABS: UTC Influenza A Antigen Negative (Negative); UTC Influenza B Antigen Negative (Negative); UTC Strep Screen (Rapid) Negative (Negative)
[2023-09-25 15:07] VITALS: BP 153/93; PULSE 79; RESP 20; TEMP 36.9; O2SAT 96
== END 2023-09-25 15:14 | disposition home or self-care (01) ==
PROVIDERS: Emergency Provider Nurse Practitioner Family; PCP Internal Medicine
DX: J20.9 Acute bronchitis, unspecified (principal); R51.9 Headache, unspecified; R50.9 Fever, unspecified; R07.0 Pain in throat; R05.9 Cough, unspecified; R09.89 Other specified symptoms and signs involving the circulatory and respiratory systems; R09.81 Nasal congestion; M79.18 Myalgia, other site
CPT/HCPCS: 87635; 87804; 87880; 99212; 99214; G0463

== ENCOUNTER 2023-12-16 13:26 | Emergency (ER) | payer BC, SELFPAY ==
[2023-12-16 13:55] VITALS: BP 144/81; PULSE 89; RESP 22; TEMP 36.8; O2SAT 98; BMI 41.1
--- NOTE | 2023-12-16 14:10 | ED_ITS ---
Discharge Plan Disposition Patient Disposition: Home, Self-Care Condition: Good Prescriptions Prescriptions: New methocarbamol 750 mg tablet 750 mg PO TID PRN (Reason: muscle spasm) Qty: 12 0RF etodolac 200 mg capsule 200 mg PO Q8H PRN (Reason: pain) Qty: 20 0RF Referrals Follow up/Referrals: Provider,Referral, MD [Primary Care Provider] - See instructions Activity Restrictions/Add. Instructions Additional Instructions/Restrictions: *Etodolac gia 8 hours with meal as needed for pain/inflammation *Remember you had a Toradol shot in the clinic today, which is similar to Etodolac so do not start until 10pm tonight *Not additional anti-inflammatory like motrin, aleve, advil with the above amount of ibuprofen. You can still take Tylenol every 4 hours as needed if you need something else for pain *Ice 20 minutes every 2 hours for the first 48 hours after the initial injury followed by moist heat every 20 minutes 3-4 times a day to affected area *Muscle relaxer every 8 hours as needed for muscle spasms but remember, it WILL cause drowsiness You cannot take it and Work, drive, operate machinery or care for small children. *Keep this area active, no movement leads to more stiffness, However take it easy and avoid heavy lifting pushing or pulling *Follow up with you family doctor if no improvement for further treatment Clinical Impressions Clinical Impression: Low back pain Qualifiers: Chronicity: unspecified Back pain laterality: midline Sciatica presence: u nspecified whether sciatica present Qualified Code(s): M54.50 - Low back pain, unspecified Stand Alone Forms Stand Alone Forms: Work/School Release Instructions Patient Instructions: Low Back Pain, DI for Low Back Pain Discharge ED Provider: Farhana Ma [facility] General Stated complaint: Pain in lower back Mode of Arrival: Ambulatory Source of Information: Patient Limitations: No Limitations Time Seen by Provider: 12/16/23 14:10 Description of Symptoms (Recalled from Triage Doc. by RN): PATIENT C/O LOWER BACK PAIN THAT RADIATES DOWN BILATERAL LEGS SINCE THURSDAY. NO KNOWN INJURY. HE STATES PAIN IS WORSE WITH BENDING OVER HEENT Symptoms (Recalled from RN notes): No Resp Symptoms (Recalled from RN notes): No Skin Symptoms (Recalled from RN notes): No MS Symptoms (Recalled from RN notes): Yes Functional Status (Recalled from RN notes): WNL History of Present Illness Provider Complaint: Patient states that he has had pain in his lower back before and tends to have flare ups more so in the spring States that on Thursday he woke up and felt stiff in his lower back area that goes down his buttock into his upper legs Denies known injury but pain is worse with bending Denies Loss of control of bowel or bladder Related Data Previous Rx's Medication Instructions Recorded etodolac 200 mg capsule 200 mg PO Q8H PRN pain #20 caps 12/16/23 methocarbamol 750 mg tablet 750 mg PO TID PRN muscle spasm #12 12/16/23 tabs Allergies Allergy/AdvReac Type Severity Reaction Status Date / Time Egg Derived Allergy Unknown Verified 09/08/22 16:34 Worker's Comp Is this a Worker's Comp case?: No [facility] Disclaimer: The information contained in this section may have been updated after the patient was seen, as this information can be updated by other users. Medical History No significant past medical history Social History Smoking Status: Never smoker alcohol intake: never substance use type: denies use current occupational status: other Travel in the last 8 weeks: None household members: family housing: house ROS Obtained: Yes All systems reviewed & no additional complaints except as documented and Yes Systems reviewed as appropriate & no additional complaints except as documented Constitutional Constitutional: Reports system reviewed and no additional complaints, except as documented, Reports as per HPI and Denies fever(s) ENT Ears, Nose, Mouth, and Throat: Reports system reviewed and no additional complaints, except as documented and Reports as per HPI Cardiovascular Cardiovascular: Reports system reviewed and no additional complaints, except as documented and Reports as per HPI Respiratory Respiratory: Reports system reviewed and no additional complaints, except as documented and Reports as per HPI Gastrointestinal Gastrointestingal: Reports system reviewed and no additional complaints, except as documented and as per HPI Genitourinary Male Genitourinary: Reports system reviewed and no additional complaints, except as documented, Reports as per HPI, Denies hematuria, Denies urinary frequency and Denies urinary urgency Musculoskeletal Musculoskeletal: Reports system reviewed and no additional complaints, except as documented, Reports as per HPI and Reports back pain Physical Exam General General appearance: alert and in no apparent distress ENT ENT exam: Present mucous membranes moist Respiratory Respiratory exam: Present normal lung sounds bilaterally; Absent respiratory distress or wheezes Cardiovascular Cardiovascular exam: Present regular rate, normal rhythm and normal heart sounds Abdominal Exam Abdominal exam: Present soft and normal bowel sounds; Absent distention or tenderness Back Exam Back exam: Present tenderness and muscle spasm Back 1 view image: 2 1. reports stiffness and spasm like pain worse with movement denies known injury Denies loss of control of bowel or bladder Neurological Exam Neurological exam: Present alert, oriented X3 and normal gait Medical Decision Making Tra Inquiry Pt receiving controlled substance: No Tra was queried for this patient: No Vital Signs: 12/16/23 13:55 Temperature 98.2 F Temperature Source Oral Pulse Rate [Left Brachial] 89 Respiratory Rate 22 Blood Pressure [Left Arm] 144/81 H Blood Pressure Mean [Left Arm] 102 Blood Pressure Source [Left Arm] Automatic Cuff Blood Pressure Position [Left Arm] Sitting 02 Sat by Pulse Oximetry 98 Oxygen Delivery Method Room Air
[2023-12-16] MEDS: KETOROLAC 60MG/2ML VIAL 60 MG IM (14:20)
[2023-12-16] MEDS: METHYLPREDNISOLONE SOD SUCC 125MG VIAL 125 MG IM (14:20)
[2023-12-16 14:24] VITALS: BP 144/81; PULSE 89; RESP 22; TEMP 36.8; O2SAT 98
== END 2023-12-16 14:48 | disposition home or self-care (01) ==
PROVIDERS: Emergency Provider Nurse Practitioner
DX: M54.50 Low back pain, unspecified (principal); M79.604 Pain in right leg; M79.605 Pain in left leg
CPT/HCPCS: 96372; 99212; 99214; G0463

== ENCOUNTER 2024-06-22 09:03 | Emergency (ER) | payer BC, SELFPAY ==
--- NOTE | 2024-06-22 09:20 | ED_ITS ---
Discharge Plan Disposition Patient Disposition: Home, Self-Care Condition: Good Prescriptions Prescriptions: New amoxicillin 500 mg tablet 500 mg PO TID 10 Days Qty: 30 0RF horiplmmacrdbef-dokdyshsz-KU [Bromfed DM] 2-30-10 mg/5 mL Syrup 5 ml PO Q6H PRN (Reason: Cough) Qty: 240 0RF Referrals Follow up/Referrals: Provider,Referral, MD [Primary Care Provider] - See instructions Activity Restrictions/Add. Instructions Additional Instructions/Restrictions: Drink plenty of fluids. Take tylenol or ibuprofen for pain or fever. Take the medications as directed. Follow up with your regular doctor. GO TO THE ER FOR ANY WORSENING SYMPTOMS Clinical Impressions Clinical Impression: Pharyngitis, Acute viral syndrome, Exposure to strep throat Stand Alone Forms Stand Alone Forms: Work/School Release Instructions Patient Instructions: Sore Throat, DI for Pharyngitis/Tonsillopharyngitis -- Adult Print Language Print Language: [place] Discharge ED Provider: Galileo Ortiz [facility] General Stated complaint: abd pain, diarrhea, weakness, body aches Time Seen by Provider: 06/22/24 09:19 Related Data Previous Rx's ?Medication ?Instructions ?Recorded amoxicillin 500 mg tablet 500 mg PO TID 10 days #30 tabs 06/22/24 qnevgkcmgnpbuzq-jvyukueyhgfrobn-UD 5 ml PO Q6H PRN Cough #240 mL 06/22/24 2 mg-30 mg-10 mg/5 mL oral syrup (Bromfed DM) Allergies Allergy/AdvReac Type Severity Reaction Status Date / Time Egg Derived Allergy Unknown Verified 09/08/22 16:34 [facility] Disclaimer: The information contained in this section may have been updated after the patient was seen, as this information can be updated by other users. Medical History No significant past medical history Social History Smoking Status: Never smoker alcohol intake: never substance use type: denies use current occupational status: other Travel in the last 8 weeks: None household members: family housing: house ROS Obtained: Yes All systems reviewed & no additional complaints except as documented Constitutional Constitutional: Reports chills and Reports fever(s) Eyes Eyes: Denies eye discharge ENT Ears, Nose, Mouth, and Throat: Reports as per HPI Cardiovascular Cardiovascular: Denies chest pain Respiratory Respiratory: Denies chest congestion and Reports cough Gastrointestinal Gastrointestingal: Reports nausea; Denies abdominal pain, constipation, cramping, diarrhea or vomiting Musculoskeletal Musculoskeletal: Denies arthralgias Integumentary/Breasts Skin/Breast: Denies rash Neurologic Neurologic: Denies paresthesias Physical Exam General General appearance: alert and in no apparent distress Head Head exam: atraumatic, normocephalic and normal inspection Eye Eye exam: Present normal appearance, PERRL and EOMI ENT ENT exam: Present normal exam, normal oropharynx, mucous membranes moist, TM's normal bilaterally and normal external ear exam Neck Neck exam: Present normal inspection, full ROM and trachea midline; Absent meningismus or lymphadenopathy Chest Chest inspection: Present normal inspection and symmetric chest wall rise; Absent tenderness Respiratory Respiratory exam: Present normal lung sounds bilaterally; Absent respiratory distress Cardiovascular Cardiovascular exam: Present regular rate and normal rhythm; Absent JVD Abdominal Exam Abdominal exam: Present soft and normal bowel sounds; Absent distention, tenderness or guarding Extremities Exam Extremities exam: Present normal inspection, full ROM and normal capillary refill; Absent calf tenderness Back Exam Back exam: Present normal inspection; Absent tenderness Neurological Exam Neurological exam: Present alert and oriented X3 Psychiatric Psychiatric exam: Present normal affect and normal mood Skin Skin exam: Present warm, dry, intact and normal color Lymphatic Lymphatic Findings: no adenopathy Medical Decision Making Medical Records Medical records reviewed: No I reviewed the patient's medical records. Screening: Per USPSTF and CDC recommendations, given the prevalence of disease in our [facility], it is our hospital?s policy to screen for HIV and viral Hepatitis for all patients aged 18 and over and those with ongoing risk factors. Tra Inquiry Pt receiving controlled substance: No Lab Data Lab results reviewed: Yes I reviewed the patient's lab results.
[2024-06-22 09:22] VITALS: BP 131/84; PULSE 59; RESP 20; TEMP 36.6; O2SAT 98; BMI 41.4
[2024-06-22 09:36] LABS: UTC Influenza A Antigen Negative (Negative); UTC Influenza B Antigen Negative (Negative)
[2024-06-22 10:17] VITALS: BP 131/84; PULSE 60; RESP 20; TEMP 36.4
== END 2024-06-22 10:17 | disposition home or self-care (01) ==
PROVIDERS: Emergency Provider Nurse Practitioner Family
DX: J02.9 Acute pharyngitis, unspecified (principal); R19.7 Diarrhea, unspecified; B34.9 Viral infection, unspecified; Z20.818 Contact with and (suspected) exposure to other bacterial communicable diseases
CPT/HCPCS: 87635; 87804; 99212; 99214; G0463

== ENCOUNTER 2024-08-13 13:29 | Emergency (ER) | payer BC, SELFPAY ==
[2024-08-13 13:30] VITALS: BP 155/97; PULSE 84; RESP 18; TEMP 36.9; O2SAT 97; BMI 39.8
--- NOTE | 2024-08-13 13:47 | PC.NURSE ---
DR ALTMAN AT BEDSIDE
--- NOTE | 2024-08-13 13:50 | ED_ITS ---
Discharge Plan Disposition Patient Disposition: Home, Self-Care Prescriptions Prescriptions: No Action amoxicillin 500 mg tablet 500 mg PO TID 10 Days Qty: 30 0RF [id number]-eypxfdqgp-KE [Bromfed DM] 2-30-10 mg/5 mL Syrup 5 ml PO Q6H PRN (Reason: Cough) Qty: 240 0RF Referrals Follow up/Referrals: Jaya Armando DO [Staff Physician] - See instructions (HTN) Provider,Referral, MD [Primary Care Provider] - See instructions Activity Restrictions/Add. Instructions Additional Instructions/Restrictions: Follow-up with primary care doctor. You have been given information for Dr. Armando's office. Call the number listed to schedule an appointment on Thursday. Please return the emerged part with any new, concerning, worsening symptoms including but not limited to severe chest pain, shortness of breath, severe headache, vision changes. Clinical Impressions Clinical Impression: Hypertension Qualifiers: Hypertension type: unspecified Qualified Code(s): I10 - Essential (primary) hypertension Print Language Print Language: [place] Discharge ED Provider: Anupam Pickett General Adult HPI General Chief complaint: Recheck/Abnormal Lab/Rx Stated complaint: high b/p, chest discomfort Time Seen by Provider: 08/13/24 13:33 Mode of Arrival: Ambulatory Source of Information: Patient Limitations: No Limitations Description of Symptoms (Recalled from ER Triage Doc. by RN): high blood pressure History of Present Illness HPI narrative: This is a 39-year-old male who presents with concern for high blood pressure. States that the other day he popped his back and that since then he has had a high blood pressure. States that it was initially 170s over 100s, however every day it has been in the 150s. States that 3 days ago whenever his symptoms beg an, he had a vague tingling sensation on his chest, however this has completely resolved and that he is completely asymptomatic at this time. Denies any headache or vision changes. Denies chest pain or shortness of breath. Does not have a PCP. Related Data Previous Rx's ?Medication ?Instructions ?Recorded amoxicillin 500 mg tablet 500 mg PO TID 10 days #30 tabs 06/22/24 fbvccmtfuaptyxg-kbwizhindakgnmq-WN 5 ml PO Q6H PRN Cough #240 mL 06/22/24 2 mg-30 mg-10 mg/5 mL oral syrup (Bromfed DM) Allergies Allergy/AdvReac Type Severity Reaction Status Date / Time Egg Derived Allergy Unknown Verified 09/08/22 16:34 [facility] Disclaimer: The information contained in this section may have been updated after the patient was seen, as this information can be updated by other users. Medical History No significant past medical history Social History Smoking Status: Never smoker alcohol intake: never substance use type: denies use current occupational status: other Travel in the last 8 weeks: None household members: family housing: house Other Medical History Have you received the Flu Vaccine for this season: No Have you received the Pneumonia Vaccine: No ROS Obtained: Yes All systems reviewed & no additional complaints except as documented Physical Exam General General appearance: alert and in no apparent distress Eye Eye exam: Present normal appearance, PERRL and EOMI Respiratory Respiratory exam: Present normal lung sounds bilaterally; Absent respiratory distress Cardiovascular Cardiovascular exam: Present regular rate and normal rhythm Abdominal Exam Abdominal exam: Present soft and distention; Absent tenderness, guarding or rebound Extremities Exam Extremities exam: Present normal inspection Neurological Exam Neurological exam: Present alert and oriented X3 Skin Skin exam: Present warm and dry Medical Decision Making Medical Records Medical records reviewed: Yes I reviewed the patient's medical records. Screening: Per USPSTF and CDC recommendations, given the prevalence of disease in our region, it is our hospital?s policy to screen for HIV and viral Hepatitis for all patients aged 18 and over and those with ongoing risk factors. Tra Inquiry Pt receiving controlled substance: No Vital Signs: 08/13/24 13:30 Temperature 98.4 F Temperature Source Oral Pulse Rate [Right] 84 Respiratory Rate 18 Blood Pressure [Right Arm] 155/97 H Blood Pressure Mean [Right Arm] 116 02 Sat by Pulse Oximetry 97 Oxygen Delivery Method Room Air Medical Decision Narrative: This is a 39-year-old male who presents with concern for high blood pressure. No established PCP. On arrival, the patient was completely asymptomatic, mildly hypertensive to 150/90, nontachycardic, afebrile. Differential diagnose includes but is not limited to benign essential hypertension, hypertensive crisis, hypertensive urgency. Given the absence of patient's symptoms, no workup or intervention is indicated at this time. He is given referral to PCP. Ultimately discharged in stable condition. Critical Care Critical Care Time Critical Care Time: No
[2024-08-13 14:01] VITALS: BP 126/78; PULSE 76; RESP 18; TEMP 36.9; O2SAT 97
== END 2024-08-13 14:05 | disposition home or self-care (01) ==
PROVIDERS: Emergency Provider Student in an Organized Health Care Education/Training Program
DX: I10 Essential (primary) hypertension (principal); R07.89 Other chest pain; R29.898 Other symptoms and signs involving the musculoskeletal system
CPT/HCPCS: 99282

== ENCOUNTER 2024-08-22 10:06 | Emergency (ER) | payer BC, SELFPAY ==
[2024-08-22 11:15] VITALS: BP 134/81; PULSE 74; RESP 19; TEMP 36.7; O2SAT 96; BMI 41.5
--- NOTE | 2024-08-22 11:17 | ED_ITS ---
Discharge Plan Disposition Patient Disposition: Home, Self-Care Condition: Good Prescriptions Prescriptions: New amoxicillin 875 mg tablet 875 mg PO Q12H Qty: 20 0RF methylprednisolone 4 mg Tablets,Dose Pack 4 mg PO DIRECTED 6 Days Qty: 21 0RF Rx Instructions: Take 1 pack as directed for 6 days fondyhiazgfvuwo-eqwqxloxb-JV [Bromfed DM] 2-30-10 mg/5 mL Syrup 5 ml PO Q6H PRN (Reason: Cough) Qty: 240 0RF Referrals Follow up/Referrals: Provider,Referral, MD [Primary Care Provider] - See instructions Activity Restrictions/Add. Instructions Additional Instructions/Restrictions: Drink plenty of fluids. Take tylenol or ibuprofen for pain or fever. Take the medications as directed. Follow up with your regular doctor. GO TO THE ER FOR ANY WORSENING SYMPTOMS Clinical Impressions Clinical Impression: Sinusitis, Pharyngitis Stand Alone Forms Stand Alone Forms: Work/School Release Instructions Patient Instructions: Sinusitis, DI for Sinusitis Print Language Print Language: Burkin[place] Discharge ED Provider: Galileo Ortiz [facility] General Stated complaint: sore throat, pain in ears, fever, sinus press, con Time Seen by Provider: 08/22/24 11:17 Related Data Previous Rx's ?Medication ?Instructions ?Recorded amoxicillin 875 mg tablet 875 mg PO Q12H #20 tabs 08/22/24 dlltijeovmmqjyn-kinmfhbychcnjxf-XH 5 ml PO Q6H PRN Cough #240 mL 08/22/24 2 mg-30 mg-10 mg/5 mL oral syrup (Bromfed DM) methylprednisolone 4 mg tablets in 4 mg PO DIRECTED 6 days #21 tabs 08/22/24 a dose pack Allergies Allergy/AdvReac Type Severity Reaction Status Date / Time Egg Derived Allergy Unknown Verified 09/08/22 16:34 [facility] Disclaimer: The information contained in this section may have been updated after the patient was seen, as this information can be updated by other users. Medical History No significant past medical history Social History Smoking Status: Never smoker alcohol intake: never substance use type: denies use current occupational status: other household members: family housing: house ROS Obtained: Yes All systems reviewed & no additional complaints except as documented Constitutional Constitutional: Reports chills and Reports fever(s) Eyes Eyes: Denies eye discharge ENT Ears, Nose, Mouth, and Throat: Reports as per HPI Cardiovascular Cardiovascular: Denies chest pain Respiratory Respiratory: Denies chest congestion and Reports cough Gastrointestinal Gastrointestingal: Reports nausea; Denies abdominal pain, constipation, cramping, diarrhea or vomiting Musculoskeletal Musculoskeletal: Denies arthralgias Integumentary/Breasts Skin/Breast: Denies rash Neurologic Neurologic: Denies paresthesias Physical Exam General General appearance: alert and in no apparent distress Eye Eye exam: Present normal appearance, PERRL and EOMI ENT ENT exam: Present mucous membranes moist and normal external ear exam Expanded ENT Exam External ear exam: Present normal external inspection TM/Canal exam: Bilateral TM: erythema and bulging Nose exam: Absent sinus tenderness Nasal speculum exam: Bilateral: normal Mouth exam: Present normal external inspection; Absent drooling Teeth exam: Present normal inspection Throat exam: Present tonsillar erythema and tonsillomegaly Neck Neck exam: Present normal inspection, full ROM and trachea midline; Absent tenderness, lymphadenopathy or thyromegaly Chest Chest inspection: Present normal inspection and symmetric chest wall rise; Absent tenderness or rash Respiratory Respiratory exam: Present normal lung sounds bilaterally; Absent respiratory distress, wheezes, stridor or accessory muscle use Cardiovascular Cardiovascular exam: Present regular rate, normal rhythm and normal heart sounds Abdominal Exam Abdominal exam: Present soft; Absent distention, tenderness, guarding, rebound or rigidity Extremities Exam Extremities exam: Present normal inspection, full ROM and normal capillary refill; Absent tenderness or calf tenderness Back Exam Back exam: Present normal inspection and full ROM; Absent tenderness Neurological Exam Neurological exam: Present alert and oriented X3 Psychiatric Psychiatric exam: Present normal affect and normal mood Skin Skin exam: Present warm, dry, intact and normal color Lymphatic Lymphatic Findings: no adenopathy Medical Decision Making Medical Records Medical records reviewed: No I reviewed the patient's medical records. Screening: Per USPSTF and CDC recommendations, given the prevalence of disease in our region, it is our hospital?s policy to screen for HIV and viral Hepatitis for all patients aged 18 and over and those with ongoing risk factors. Tra Inquiry Pt receiving controlled substance: No Lab Data Lab results reviewed: Yes I reviewed the patient's lab results.
[2024-08-22 11:30] LABS: UTC Influenza A Antigen Negative (Negative); UTC Strep Screen (Rapid) Negative (Negative)
[2024-08-22 11:31] LABS: UTC Influenza B Antigen Negative (Negative)
[2024-08-22 11:50] VITALS: BP 134/81; PULSE 74; RESP 19; TEMP 36.7; O2SAT 96
== END 2024-08-22 11:53 | disposition home or self-care (01) ==
PROVIDERS: Emergency Provider Nurse Practitioner Family
DX: J02.9 Acute pharyngitis, unspecified (principal); J01.90 Acute sinusitis, unspecified; H92.09 Otalgia, unspecified ear; R50.9 Fever, unspecified; R09.81 Nasal congestion; R05.9 Cough, unspecified; R11.0 Nausea
CPT/HCPCS: 87804; 87880; 99212; G0381

== ENCOUNTER 2024-11-22 16:26 | Outpatient (CLI) | payer BC, SELFPAY ==
--- NOTE | 2024-11-22 16:37 | XR_ITS ---
PROCEDURE INFORMATION: Exam: XR Lumbosacral Spine Exam date and time: 11/22/2024 4:40 PM Age: 39 years old Clinical indication: Low back pain; Additional info: Lumbosacral pain. PT states chronic pain TECHNIQUE: Imaging protocol: Radiologic exam of the lumbosacral spine. Views: 2 or 3 views. COMPARISON: No relevant prior studies available. FINDINGS: Bones/joints: Normal. No acute fracture. Normal alignment. Soft tissues: Unremarkable. IMPRESSION: No acute findings.
== END 2024-11-22 23:59 | disposition home or self-care (01) ==
LOC: RAD 16:27
PROVIDERS: PCP Internal Medicine; Visit Provider Internal Medicine
DX: M54.50 Low back pain, unspecified (principal)
CPT/HCPCS: 72100

== ENCOUNTER 2024-11-26 11:13 | Outpatient (CLI) | payer BC, SELFPAY ==
[2024-11-26 11:33] LABS: Basophils # 0.1 K/mm3 (0-0.2); Basophils % 0.9 % (0.1-2.0); Eosinophils # 0.2 K/mm3 (0.0-0.4); Eosinophils % 3.5 % (0.1-12.0); Hematocrit 47.8 % (42.0-52.0); Hemoglobin 16.2 g/dL (14.1-18.0); Lymphocytes # 1.9 K/mm3 (0.7-4.5); Lymphocytes % 28.6 % (10-50); Mean Corpuscular HGB Conc 33.9 g/dL (31.8-35.4); Mean Corpuscular Hemoglobin 30.3 pg (27.0-31.2); Mean Corpuscular Volume 89.3 fl (80-94); Mean Platelet Volume 11.6 fl (7.4-10.4); Monocytes # 0.6 K/mm3 (0.1-1.0); Monocytes % 8.3 % (1.7-9.3); Neutrophils # 3.9 K/mm3 (1.8-7.8); Neutrophils % 58.5 % (37.0-80.0); Platelet Count 166 K/mm3 (142-424); Red Blood Count 5.35 M/mm3 (4.60-6.20); White Blood Count 6.7 K/mm3 (4.8-10.8)
[2024-11-26 12:04] LABS: Alanine Aminotransferase 80 U/L (12-78); Albumin Level 4.5 g/dl (3.5-5.0); Albumin/Globulin Ratio 2.1 (1.1-1.8); Alkaline Phosphatase 44 U/L (38-126); Anion Gap 6.1 mEq/L (5-15); Aspartate Amino Transferase 61 U/L (17-59); Bilirubin,Total 0.8 mg/dl (0.2-1.3); Blood Urea Nitrogen 18 mg/dl (9-20); Calcium 9.1 mg/dl (8.4-10.2); Carbon Dioxide 30 mmol/L (22.0-30.0); Chloride 107 mmol/L (98-107); Chol/HDL Ratio 5.6 (1-3.5); Cholesterol 174 mg/dl (140-200); Estimated Glomerular Filt Rate 83 ml/min (>60); GFR (African American) 101 ML/MIN (>60); Globulin 2.1 g/dL (1.3-3.2); Glucose 93 mg/dl (74-100); HDL Cholesterol 31 mg/dl (40-60); Potassium 4.1 mmoL/L (3.5-5.1); Sodium 139 mmol/L (136-145); Total Protein,Serum 6.6 g/dl (6.3-8.2); Triglycerides 125 mg/dl (30-150); VLDL Cholesterol 25 mg/dL (0-40)
[2024-11-26 12:15] LABS: Direct LDL Cholesterol 111.15 mg/dL (100-129)
[2024-11-26 13:21] LABS: HIV Combo NEGATIVE (Negative)
[2024-11-26 13:30] LABS: Hepatitis C Ab Qual. W/ RFX NEGATIVE (Negative)
[2024-11-26 16:14] LABS: Hemoglobin A1C 5.2 % (4.0-6.0)
[2024-12-02 19:10] LABS: Testosterone, Total, LC/MS 267 ng/dL (.)
== END 2024-11-26 23:59 | disposition home or self-care (01) ==
LOC: LAB 11:14
PROVIDERS: PCP Internal Medicine; Visit Provider Internal Medicine
DX: R79.89 Other specified abnormal findings of blood chemistry (principal); I10 Essential (primary) hypertension; M54.50 Low back pain, unspecified; Z13.1 Encounter for screening for diabetes mellitus; Z11.4 Encounter for screening for human immunodeficiency virus [HIV]; Z11.59 Encounter for screening for other viral diseases; Z13.220 Encounter for screening for lipoid disorders
CPT/HCPCS: 36415; 80053; 80061; 83036; 84403; 85025; 86803; 87389